=== PATIENT | male | born 1975 | race Caucasian/White ===

== ENCOUNTER 2017-04-30 01:08 | Inpatient (IN) | payer MEDICAID ==
[~2017-04-30] VITALS: Ht 175.3 cm; Wt 89.1 kg
[2017-04-30 01:59] LABS: Basophils # (auto) 0.1 uL; Basophils % (auto) 1.3 % (0.0-2.0); Eosinophils # (auto) 0.2 uL; Eosinophils % (auto) 2.3 % (0.0-7.0); Hematocrit 47.7 % (41.0-53.0); Hemoglobin 16.7 g/dL (13.5-17.5); Lymphocytes # (auto) 2.3 uL; Lymphocytes % (auto) 24.5 % (10.0-50.0); Mean Corpuscular Hemoglobin 32.9 pg (28.0-32.0); Mean Corpuscular Hgb Conc. 35.1 g/dL (32.0-36.0); Mean Corpuscular Volume 93.8 fL (80.0-100.0); Mean Platelet Volume 8.2 fL (6.9-10.8); Monocytes # (auto) 0.6 uL; Monocytes % (auto) 6.3 % (0.0-12.0); Neutrophils # (auto) 6.2 uL; Neutrophils % (auto) 65.6 % (37.0-80.0); Nucleated Red Blood Cells % 0.7 %; Platelet Count (auto) 217 10^3/uL (140-450); Red Cell Distribution Width 12.7 % (11.8-14.3); White Blood Cell 9.4 10^3/uL (4.4-10.8)
[2017-04-30 02:11] LABS: INR 0.95 (0.9-1.15); Partial Thromboplastin Time 26.2 sec (22.64-33.71); Prothrombin Time 10.3 sec (9.37-12.3)
[2017-04-30 02:19] LABS: Albumin 4.6 g/dL (3.4-5.0); BUN/Creatinine Ratio 9.7; Potassium 4.1 mmol/L (3.5-5.1)
[2017-04-30 02:22] LABS: Bilirubin, Total 0.6 mg/dL (0.2-1.0); Total Protein 7.9 g/dL (6.4-8.2)
[2017-04-30 02:40] LABS: Urine Bilirubin Negative (Negative); Urine Blood 2+ /uL (Negative); Urine Color Yellow (Yellow); Urine Glucose Normal (Normal); Urine Ketone Negative (Negative); Urine Mucus FEW (None Seen); Urine Nitrite Negative (Negative); Urine RBC 39 /hpf (0 - 3); Urine Squamous Epithelial Cell FEW /hpf (<5); Urine Urobilinogen Normal (Negative)
[2017-04-30] MEDS ORDERED: SODIUM CHLORIDE 0.9% 1,000 ML IV ONE (07:45)
[2017-04-30] MEDS ORDERED: LEVOFLOXACIN 500MG 100 ML IV ONE (07:45)
[2017-04-30] MEDS ORDERED: KETOROLAC TROMETH 30 MG/ML 1ML VIAL IV ONE (07:45)
[2017-04-30] MEDS ORDERED: ONDANSETRON HCL 4 MG/2 ML VIAL IV PRN (11:30)
[2017-04-30] MEDS ORDERED: DOCUSATE SOD 100 MG CAP PO PRN (11:30)
[2017-04-30] MEDS ORDERED: ACETAMINOPHEN 325 MG TAB PO PRN (11:30)
[2017-04-30] MEDS ORDERED: MORPHINE SULF INJ 2 MG/ML SYRINGE 1ML IV PRN (11:30)
[2017-04-30] MEDS ORDERED: cloNIDine HCL 0.1 MG TAB PO PRN (11:30)
[2017-04-30] MEDS ORDERED: TEMAZEPAM 15 MG CAP PO PRN (11:30)
[2017-04-30] MEDS ORDERED: FLUoxetine HCL 20 MG CAP PO ONE (11:30)
[2017-04-30] MEDS: SODIUM CHLORIDE 0.9% 1,000 ML IV SCH ×2 (12:03→19:36)
[2017-04-30] MEDS: BUDESONIDE (INHALATION) 0.5 MG/2 ML NEB NEB SCH ×2 (12:30→22:46)
[2017-04-30] MEDS: ALBUTEROL SULF 2.5 MG/0.5ML(0.5%) NEB SOLN NEB SCH ×2 (12:30→22:46)
[2017-04-30] MEDS: ALPRAZolam 0.25 MG TAB PO PRN (17:20)
[2017-04-30] MEDS: HYDROcodone-ACET 5/325MG TAB PO PRN (17:20)
[2017-04-30 20:00] VITALS: BP 153/87
[2017-04-30 22:59] VITALS: BP 153/87
[2017-05-01] MEDS: SODIUM CHLORIDE 0.9% 1,000 ML IV SCH ×4 (04:56→20:29)
[2017-05-01] MEDS: ALBUTEROL SULF 2.5 MG/0.5ML(0.5%) NEB SOLN NEB SCH ×3 (06:46→19:20)
[2017-05-01] MEDS: BUDESONIDE (INHALATION) 0.5 MG/2 ML NEB NEB SCH ×2 (06:46→19:20)
[2017-05-01 06:54] LABS: Basophils # (auto) 0 uL; Basophils % (auto) 0.3 % (0.0-2.0); Eosinophils # (auto) 0.2 uL; Eosinophils % (auto) 1.9 % (0.0-7.0); Hematocrit 43.3 % (41.0-53.0); Hemoglobin 15.3 g/dL (13.5-17.5); Lymphocytes % (auto) 9.8 % (10.0-50.0); Mean Corpuscular Hemoglobin 33.6 pg (28.0-32.0); Mean Corpuscular Hgb Conc. 35.3 g/dL (32.0-36.0); Mean Corpuscular Volume 95.1 fL (80.0-100.0); Mean Platelet Volume 8.4 fL (6.9-10.8); Monocytes # (auto) 0.9 uL; Monocytes % (auto) 9.2 % (0.0-12.0); Neutrophils # (auto) 7.7 uL; Neutrophils % (auto) 78.8 % (37.0-80.0); Nucleated Red Blood Cells % 0.1 %; Platelet Count (auto) 177 10^3/uL (140-450); Red Cell Distribution Width 12.8 % (11.8-14.3); White Blood Cell 9.8 10^3/uL (4.4-10.8)
[2017-05-01 07:11] LABS: Albumin 3.6 g/dL (3.4-5.0); Bilirubin, Total 1.2 mg/dL (0.2-1.0); Calcium 8.4 mg/dL (8.5-10.1); Potassium 5.1 mmol/L (3.5-5.1)
[2017-05-01 08:00] VITALS: BP 140/81
[2017-05-01] MEDS: LEVOFLOXACIN 500MG 100 ML IV SCH (08:31)
[2017-05-01] MEDS ORDERED: ALPR0.254 PO (08:39)
[2017-05-01] MEDS ORDERED: ALBUAER3 IN (08:39)
[2017-05-01 09:00] VITALS: BP 140/81
[2017-05-01] MEDS ORDERED: BECL0.07 IN (09:05)
[2017-05-01] MEDS: MULTIPLE VITAMIN TAB PO SCH (09:13)
[2017-05-01] MEDS: FLUoxetine HCL 20 MG CAP PO SCH (09:14)
[2017-05-01 12:50] VITALS: BP 156/89
[2017-05-01 16:15] VITALS: BP 150/96
[2017-05-01] MEDS: ALPRAZolam 0.25 MG TAB PO PRN (20:32)
[2017-05-01 22:04] VITALS: BP 150/89
[2017-05-02] MEDS: ALBUTEROL SULF 2.5 MG/0.5ML(0.5%) NEB SOLN NEB SCH ×2 (00:52→06:42)
[2017-05-02] MEDS: HYDROcodone-ACET 5/325MG TAB PO PRN (01:49)
[2017-05-02] MEDS: SODIUM CHLORIDE 0.9% 1,000 ML IV SCH (04:12)
[2017-05-02 05:43] VITALS: BP 144/70
[2017-05-02] MEDS: BUDESONIDE (INHALATION) 0.5 MG/2 ML NEB NEB SCH (06:42)
[2017-05-02 07:13] LABS: BUN/Creatinine Ratio 6.9; Calcium 8.5 mg/dL (8.5-10.1); Potassium 4.2 mmol/L (3.5-5.1)
[2017-05-02 08:03] VITALS: BP 160/87
[2017-05-02] MEDS: LEVOFLOXACIN 500MG 100 ML IV SCH (08:26)
[2017-05-02] MEDS: FLUoxetine HCL 20 MG CAP PO SCH (09:51)
[2017-05-02] MEDS: MULTIPLE VITAMIN TAB PO SCH (09:51)
[2017-05-02] MEDS ORDERED: SODIUM CHLORIDE 0.9 % NEB SOLN 3ML NEB ONE (10:21)
[2017-05-02 11:05] VITALS: BP 160/87
[2017-05-02 11:19] VITALS: BP 162/86
== END 2017-05-02 12:00 | disposition home or self-care (01) | DRG 465 ==
LOC: ER 01:09 → OVERFLOW 01:10 → WEST WING 18:20
PROVIDERS: ADMIT Internal Medicine; ATTEND Internal Medicine
DX: N13.2 Hydronephrosis with renal and ureteral calculous obstruction (principal); N18.3 Chronic kidney disease, stage 3 (moderate); N39.0 Urinary tract infection, site not specified; F41.9 Anxiety disorder, unspecified; J45.909 Unspecified asthma, uncomplicated; I70.90 Unspecified atherosclerosis; M19.90 Unspecified osteoarthritis, unspecified site; Z87.442 Personal history of urinary calculi; Z83.3 Family history of diabetes mellitus
CPT/HCPCS: 36415; 74176; 80048; 80053; 81001; 85025; 85610; 85730; 87086; 94640; 96365; 96375; 99291; J1885; J1956

== ENCOUNTER 2017-07-04 03:43 | Emergency (ER) | payer MEDICAID ==
[~2017-07-04] VITALS: Ht 175.3 cm; Wt 88.0 kg
[~2017-07-04 03:43] MED LIST: ALBUAER3 IN; ALPR0.254 PO; BECL0.07 IN
[2017-07-04 04:24] LABS: Basophils # (auto) 0.1 uL; Basophils % (auto) 1.1 % (0.0-2.0); Eosinophils # (auto) 0.2 uL; Eosinophils % (auto) 2.3 % (0.0-7.0); Hematocrit 46.9 % (41.0-53.0); Hemoglobin 16.7 g/dL (13.5-17.5); Lymphocytes # (auto) 2.4 uL; Lymphocytes % (auto) 24.6 % (10.0-50.0); Mean Corpuscular Hemoglobin 32.8 pg (28.0-32.0); Mean Corpuscular Hgb Conc. 35.7 g/dL (32.0-36.0); Mean Corpuscular Volume 91.7 fL (80.0-100.0); Mean Platelet Volume 8.7 fL (6.9-10.8); Monocytes # (auto) 0.5 uL; Monocytes % (auto) 5.3 % (0.0-12.0); Neutrophils # (auto) 6.5 uL; Neutrophils % (auto) 66.7 % (37.0-80.0); Nucleated Red Blood Cells % 0.2 %; Platelet Count (auto) 220 10^3/uL (140-450); Red Cell Distribution Width 12.9 % (11.8-14.3); White Blood Cell 9.7 10^3/uL (4.4-10.8)
[2017-07-04 04:39] LABS: INR 0.97 (0.9-1.15); Partial Thromboplastin Time 26.3 sec (22.64-33.71); Prothrombin Time 10.6 sec (9.37-12.3)
[2017-07-04 04:55] LABS: Albumin 4.1 g/dL (3.4-5.0); BUN/Creatinine Ratio 9.6; Bilirubin, Total 0.6 mg/dL (0.2-1.0); Calcium 8.4 mg/dL (8.5-10.1); Potassium 3.8 mmol/L (3.5-5.1); Total Protein 7.8 g/dL (6.4-8.2)
[2017-07-04 05:56] LABS: Urine Bilirubin Negative (Negative); Urine Blood Negative /uL (Negative); Urine Color Yellow (Yellow); Urine Glucose Normal (Normal); Urine Ketone Negative (Negative); Urine Mucus FEW (None Seen); Urine Nitrite Negative (Negative); Urine RBC <1 /hpf (0 - 3); Urine Urobilinogen Normal (Negative)
[2017-07-04 06:50] VITALS: BP 147/89
== END 2017-07-04 06:53 | disposition home or self-care (01) ==
LOC: ER 03:45
DX: F41.9 Anxiety disorder, unspecified (principal); M19.90 Unspecified osteoarthritis, unspecified site; J45.909 Unspecified asthma, uncomplicated; I10 Essential (primary) hypertension; F17.210 Nicotine dependence, cigarettes, uncomplicated; Z87.442 Personal history of urinary calculi
CPT/HCPCS: 36415; 71020; 80053; 80307; 81001; 84484; 85025; 85610; 85730; 93005